=== PATIENT | female | born 1945 | race Caucasian/White ===

== ENCOUNTER 2025-03-24 17:31 | Emergency (ER) | payer MEDICARE, BC ==
[2025-03-24] MEDS: Iopamidol 755 Mg/ML 100 ML Bottle IV SCH (18:00)
[2025-03-24 18:12] LABS: BASOPHILS ABSOLUTE AUTO 0.0 x10-3/uL (0.0-0.1); BASOPHILS PERCENT AUTO 0.4 % (0.2-1.5); EOSINOPHILS ABSOLUTE AUTO 0.1 x10-3/uL (0.0-0.8); EOSINOPHILS PERCENT AUTO 1.7 % (0.6-8.1); LYMPHOCYTES ABSOLUTE AUTO 1.1 x10-3/uL (1.0-4.4); LYMPHOCYTES PERCENT AUTO 17.9 % (18.4-52.1); MEAN PLATELET VOLUME 8.8 fL (7.1-12.4); MONOCYTES ABSOLUTE AUTO 0.3 x10-3/uL (0.3-1.0); MONOCYTES PERCENT AUTO 5.2 % (4.4-15.7); NEUTROPHILS ABSOLUTE AUTO 4.6 x10-3/uL (1.5-6.3); NEUTROPHILS PERCENT AUTO 74.8 % (30.8-76.2); PLATELET COUNT,PLT 227 x10(3)uL (151-488); RED BLOOD CELL COUNT 3.83 x10(6)uL (3.60-5.20); RED CELL DISTRIBUTION WIDTH 13.6 % (12.3-16.5); WHITE BLOOD CELL COUNT,WBC 6.1 x10-3/uL (3.0-10.3)
[2025-03-24 18:15] LABS: BLOOD UREA NITROGEN,BUN 21 mg/dL (7-18); CARBON DIOXIDE,CO2 28 mmol/L (21-32); CHLORIDE,CL 107 mmol/L (100-110); CREATININE 1.3 mg/dL (0.55-1.02); ESTIMATED GFR 42 mL/min (>60); GLUCOSE RANDOM 91 mg/dL (80-116); POTASSIUM,K 4.0 mmol/L (3.5-5.3); SODIUM,NA 145 mmol/L (135-145)
[2025-03-24 18:18] LABS: INR 1.04 (1.00-1.24)
[2025-03-24 18:21] LABS: A/G RATIO 0.8; ALANINE AMINOTRANSFERASE,ALT 16 U/L (12-36); ASPARTATE AMNIOTRANSFERASE,AST 17 IU/L (5-25); BILIRUBIN TOTAL 0.4 mg/dL (0.1-1.3); PROTEIN TOTAL,TP 7.1 g/dL (6.0-8.0)
== END 2025-03-24 19:40 | disposition home or self-care (01) ==
LOC: FB.ED 17:31
DX: G31.84 Mild cognitive impairment of uncertain or unknown etiology (principal); I48.91 Unspecified atrial fibrillation; N18.32 Chronic kidney disease, stage 3b
CPT/HCPCS: 36415; 70450; 70496; 70498; 80053; 82947; 84484; 85025; 85610; 93005; 99285; Q9967

== ENCOUNTER 2025-04-27 10:05 | Emergency (ER) | payer MEDICARE, BC ==
[2025-04-27 10:26] LABS: GLUCOSE,URINE NORMAL (NORMAL); OCCULT BLOOD,URINE LARGE (NEGATIVE)
[2025-04-27 10:27] LABS: APPEARANCE,URINE CLOUDY (CLEAR)
[2025-04-27 10:32] LABS: EPITHELIAL CELLS,URINE FEW
== END 2025-04-27 11:24 ==
LOC: FB.ED 10:05
DX: N30.01 Acute cystitis with hematuria (principal); I10 Essential (primary) hypertension
CPT/HCPCS: 81001; 87086; 87088; 87186; 99283